=== PATIENT | male | born 1950 | race Native Hawaiian/Other Pacific Islander ===

== ENCOUNTER 2020-06-14 09:59 | Emergency (ER) | payer BC, OTHER ==
--- NOTE | 2020-06-14 10:36 | EDM.PDOC ---
ED HPI GENERAL MEDICAL PROBLEM - General Chief Complaint: Lower Extremity Injury/Pain Stated Complaint: RIGHT KNNE PAIN VT PATIENT Time Seen by Provider: 06/14/20 10:30 Source of Information: Reports: Patient, Family History Limitations: Reports: No Limitations - History of Present Illness INITIAL COMMENTS - FREE TEXT/NARRATIVE: 70-year-old male with right knee pain for the past 5 days. It started when he was getting out of a boat when his knee gave out and he had intense pain. It was difficult bearing weight for the next 1 to 2 days but within 2 to 3 days it felt like the pain was almost gone. He had no swelling. Yesterday however when he was extending the leg and pushing on a pedal of a bike, it "gave out" a second time and now is having pain and difficulty walking. Still has no swelling. [facility] come to [facility] to get an evaluation. Onset: Sudden Duration: Intermittent, Waxing/Waning Location: Reports: Lower Extremity, Right Quality: Reports: Sharp Improves with: Reports: Rest Worsens with: Reports: Other (Weightbearing is painful), Movement Associated Symptoms: Reports: No Other Symptoms Right Knee Pain Score (Numeric/FACES): 8 - Related Data Allergies Allergy/AdvReac Type Severity Reaction Status Date / Time nifedipine [From Procardia] Allergy Swelling Verified 06/14/20 10:17 Home Meds: Home Meds . [Unable to Verify Home Med List] 06/14/20 [History] Past Medical History HEENT History: Reports: Hard of Hearing, Impaired Vision Cardiovascular History: Reports: High Cholesterol, Hypertension Genitourinary History: Reports: Other (See Below) Other Genitourinary History: difficulty urinating Musculoskeletal History: Reports: Fracture Other Musculoskeletal History: fx r index finger Endocrine/Metabolic History: Reports: Diabetes, Type II, Obesity/BMI 30+ - Infectious Disease History Infectious Disease History: Reports: Chicken Pox, Measles, Mumps - Past Surgical History HEENT Surgical History: Reports: Tonsillectomy GI Surgical History: Reports: Colonoscopy Social & Family History - Tobacco Use Smoking Status *Q: Never Smoker Second Hand Smoke Exposure: No - Caffeine Use Caffeine Use: Reports: Coffee - Recreational Drug Use Recreational Drug Use: No Review of Systems - Review of Systems Review Of Systems: See Below Constitutional: Denies: Fever Respiratory: Reports: No Symptoms Cardiovascular: Reports: No Symptoms GI/Abdominal: Reports: No Symptoms Musculoskeletal: Reports: Other (No other significant joint complaints) Skin: Reports: No Symptoms. Denies: Rash ED EXAM, GENERAL - Physical Exam Exam: See Below Exam Limited By: No Limitations General Appearance: Alert, No Apparent Distress Respiratory/Chest: No Respiratory Distress Extremities: Other (Exam is otherwise limited to the lower extremities. The knees are symmetric without significant swelling or deformity of the right knee compared to the left. When the knee is relaxed, he has a small amount of tenderness to the lateral tibial plateau but no effusion, no tenderness the patella or patellar tendon, no medial joint line tenderness. Valgus and varus stress to the knee is nontender, but compression of the lateral joint does cause sharp pain.) Neurological: Alert, Oriented Psychiatric: Normal Affect, Normal Mood Skin Exam: Warm, Dry Course - Vital Signs Last Recorded V/S: Last Vital Signs Temp 97.1 F 06/14/20 10:22 Pulse 63 06/14/20 10:22 Resp 16 06/14/20 10:22 BP 150/59 H 06/14/20 10:22 Pulse Ox 95 06/14/20 10:22 - Orders/Labs/Meds Orders: Active Orders 24 hr Category Date Time Status DME for Discharge [COMM] Stat Oth 06/14/20 11:00 Ordered - Re-Assessments/Exams Free Text/Narrative Re-Assessment/Exam: 06/14/20 10:41 A right knee x-ray was obtained. 06/14/20 10:53 X-rays negative. A 4 inch [place] wrap was applied to the knee and the patient attempted to ambulate but was still having sharp pain in the lateral knee. He was then fitted for crutches and can refer recheck with orthopedics next week. Departure - Departure Time of Disposition: 11:00 Disposition: Home, Self-Care 01 Clinical Impression: Pain in lateral portion of right knee - Discharge Information Instructions: Crutch Use, Adult, [id number], Acute Knee Pain, Adult Referrals: Ivy Wang CAPACITY ANALYST [Primary Care Provider] - Forms: ED Department Discharge Care Plan Goals: Wrap knee for support and use crutches for the next several days and try to increase activity as tolerated. If not improving satisfactorily by early next week, recheck with orthopedics. Sepsis Event Note (ED) - Evaluation Sepsis Screening Result: No Definite Risk - Focused Exam Vital Signs: Vital Signs Temp Pulse Resp BP Pulse Ox 06/14/20 10:22 97.1 F 63 16 150/59 H 95 - My Orders Last 24 Hours: My Active Orders 06/14/20 11:00 DME for Discharge [COMM] Stat - Assessment/Plan Last 24 Hours: My Active Orders 06/14/20 11:00 DME for Discharge [COMM] Stat
--- NOTE | 2020-06-14 11:10 | CR ---
Knee 3V Rt CLINICAL HISTORY: Pain, giving out FINDINGS: No acute fracture or dislocation is noted. There are no osseous lesions. There is some patellar spurring. Impression: Patellar spurring No fracture or osseous lesion
== END 2020-06-14 11:00 | disposition home or self-care (01) ==
LOC: JP.ED 09:59
DX: M25.561 Pain in right knee (principal); E11.9 Type 2 diabetes mellitus without complications; E66.9 Obesity, unspecified; I10 Essential (primary) hypertension; Z88.8 Allergy status to other drugs, medicaments and biological substances; Z98.890 Other specified postprocedural states
CPT/HCPCS: 73562-26-RT; 73562-RT; 99282; 99283-25

== ENCOUNTER 2020-10-30 13:24 | Emergency (ER) | payer OTHER, MEDICARE ==
[2020-10-30] MEDS ORDERED: Meclizine 25 MG Tab PO ONE (14:44)
--- NOTE | 2020-10-30 14:46 | EDM.PDOC ---
ED HPI GENERAL MEDICAL PROBLEM - General Chief Complaint: General Stated Complaint: VERTIGO Time Seen by Provider: 10/30/20 14:10 Source of Information: Reports: Patient, Family History Limitations: Reports: No Limitations - History of Present Illness INITIAL COMMENTS - FREE TEXT/NARRATIVE: 70-year-old male who is been doing well, but while on the computer this morning at 7 AM developed sudden vertigo especially when looking left or right. No headache, but he did develop nausea and eventually vomiting. This has not happened to him in the past. After it did not resolve after several hours he came in to be checked. Patient is having trouble walking because of the vertigo, and had one emesis after getting into his exam room. No recent trauma. Onset: Sudden Duration: Hour(s): (5 hours) Worsens with: Reports: Other (Certain head movements cause increased vertigo) Associated Symptoms: Reports: Nausea/Vomiting - Related Data Allergies Allergy/AdvReac Type Severity Reaction Status Date / Time nifedipine [From Procardia] Allergy Swelling Verified 10/30/20 14:00 Home Meds: Home Meds Albuterol [Ventolin HFA] 1 puff INH Q4H PRN 10/30/20 [History] Alogliptin Benzoate [Alogliptin] 12.5 mg PO DAILY 10/30/20 [History] Ascorbic Acid [Vitamin C] 1 tab PO DAILY 10/30/20 [History] Aspirin 81 mg PO BEDTIME 10/30/20 [History] Atenolol/Chlorthalidone [Atenolol-Chlorthalidone 50-25] 1 tab PO DAILY 10/30/20 [History] Cholecalciferol (Vitamin D3) [Vitamin D3] 1 tab PO DAILY 10/30/20 [History] Finasteride 5 mg PO DAILY 10/30/20 [History] Fish Oil/[place]-3 Fatty Acids [Fish Oil 1,000 MG] 1 tab PO BID 10/30/20 [History] Glimepiride 2 mg PO BIDMEALS 10/30/20 [History] Insulin Glarg,Human.Rec.Analog [Lantus Solostar] 35 unit SUBCUT BEDTIME 10/30/20 [History] Multivitamin [Multi-Vitamin Daily] 1 each PO DAILY 10/30/20 [History] Pantoprazole 20 mg PO ACBREAKFAST 10/30/20 [History] Tamsulosin [Tamsulosin 24 Hr] 0.4 mg PO DAILY 10/30/20 [History] Zinc 1 tab PO DAILY 10/30/20 [History] amLODIPine Besylate [Amlodipine Besylate] 10 mg PO BEDTIME 10/30/20 [History] lisinopriL [Lisinopril] 40 mg PO DAILY 10/30/20 [History] metFORMIN [Glucophage] 1,000 mg PO BIDMEALS 10/30/20 [History] Past Medical History HEENT History: Reports: Hard of Hearing, Impaired Vision Cardiovascular History: Reports: High Cholesterol, Hypertension Genitourinary History: Reports: BPH, Other (See Below) Other Genitourinary History: difficulty urinating Musculoskeletal History: Reports: Fracture Other Musculoskeletal History: fx r index finger Endocrine/Metabolic History: Reports: Diabetes, Type II, Obesity/BMI 30+ - Infectious Disease History Infectious Disease History: Reports: Chicken Pox, Measles, Mumps - Past Surgical History HEENT Surgical History: Reports: Tonsillectomy GI Surgical History: Reports: Colonoscopy Social & Family History - Tobacco Use Tobacco Use Status *Q: Former Tobacco User Used Tobacco, but Quit: Yes Month/Year Tobacco Last Used: 1986 - Caffeine Use Caffeine Use: Reports: Coffee - Recreational Drug Use Recreational Drug Use: No ED ROS GENERAL - Review of Systems Review Of Systems: See Below Constitutional: Denies: Fever, Chills HEENT: Reports: Vertigo. Denies: Ear Pain, Eye Pain, Vision Change Respiratory: Denies: Shortness of Breath Cardiovascular: Denies: Chest Pain GI/Abdominal: Reports: Nausea, Vomiting Skin: Reports: No Symptoms Neurological: Reports: Dizziness, Weakness, Gait Disturbance (Difficulty walking due to the vertigo). Denies: Headache Psychiatric: Reports: No Symptoms ED EXAM, GENERAL - Physical Exam Exam: See Below Exam Limited By: No Limitations General Appearance: Alert, No Apparent Distress (Uncomfortable but not distressed) Eye Exam: Bilateral Eye: EOMI, Nystagmus (Definite nystagmus looking to the left, none to the right), PERRL Ears: Normal TMs Head: Atraumatic Neck: Supple, Non-Tender. No: Carotid Bruit Respiratory/Chest: No Respiratory Distress, Lungs Clear Cardiovascular: Regular Rate, Rhythm GI/Abdominal: Soft, Non-Tender Extremities: Normal Inspection Neurological: Alert, Oriented, No Motor/Sensory Deficits, Abnormal Gait (Uncomfortable with ambulation due to vertigo) Psychiatric: Normal Affect, Normal Mood Skin Exam: Warm, Dry Course - Vital Signs Last Recorded V/S: Last Vital Signs Temp 97.7 F 10/30/20 14:05 Pulse 58 L 10/30/20 14:05 Resp 16 10/30/20 14:05 BP 144/72 H 10/30/20 14:05 Pulse Ox 92 L 10/30/20 14:05 - Orders/Labs/Meds Meds: Medications Discontinued Medications Generic Name Dose Route Start Last Admin Trade Name Carlos PRN Reason Stop Dose Admin Meclizine HCl 25 mg 10/30/20 14:44 10/30/20 14:49 Antivert PO 10/30/20 14:45 25 mg ONETIME ONE Administration Meclizine HCl Confirm 10/30/20 14:50 Antivert Administered 10/30/20 14:51 Dose 25 mg .ROUTE .STK-MED ONE - Re-Assessments/Exams Free Text/Narrative Re-Assessment/Exam: 10/30/20 15:27 And Jameson maneuver was performed concentrating on the left side, and within 10 minutes his symptoms were markedly improved. He was still having some slight nystagmus however, so CT of the head was done after giving 25 mg of oral meclizine. 10/30/20 15:32 CT of the head was negative for acute findings, he was feeling much better so was discharged with extra doses of meclizine. Recheck in 2 to 3 days if not improving satisfactorily. Departure - Departure Time of Disposition: 15:49 Disposition: Home, Self-Care 01 Clinical Impression: Vestibular neuritis Qualifiers: Laterality: left Qualified Code(s): H81.22 - Vestibular neuronitis, left ear - Discharge Information Instructions: Vertigo, [id number] Referrals: Ivy Wang CORN COOKER [Primary Care Provider] - Forms: ED Department Discharge Care Plan Goals: Rest today, use meclizine as needed and increase activity and diet as tolerated. Consider rechecking in 2 to 3 days if not improving satisfactorily, or return anytime if worsening or concerns. Sepsis Event Note (ED) - Evaluation Sepsis Screening Result: No Definite Risk - Focused Exam Vital Signs: Vital Signs Temp Pulse Resp BP Pulse Ox 10/30/20 14:05 97.7 F 58 L 16 144/72 H 92 L 10/30/20 13:49 97.7 F 58 L 16 144/72 H 92 L
[2020-10-30] MEDS ORDERED: Meclizine 25 MG Tab ONE (14:50)
--- NOTE | 2020-10-30 15:50 | CT ---
Head wo Cont CLINICAL HISTORY: Vertigo COMPARISON: None TECHNIQUE: Transverse scans were obtained from the base of the skull through the vertex without IV contrast on a multislice, multidetector CT scanner. Auto dosage reduction and iterative reconstruction techniques employed. FINDINGS: There is an 8 mm well-circumscribed CSF density focus in the right basal ganglia thalamic region. There is no mass effect, hemorrhage, or extraaxial collection. The basal cisterns and sulci over the convexities are prominent. The ventricles are prominent. 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
== END 2020-10-30 15:49 | disposition home or self-care (01) ==
LOC: JP.ED 13:24
DX: H81.22 Vestibular neuronitis, left ear (principal); I10 Essential (primary) hypertension; N40.0 Benign prostatic hyperplasia without lower urinary tract symptoms; E11.9 Type 2 diabetes mellitus without complications; E66.9 Obesity, unspecified; Z68.36 Body mass index [BMI] 36.0-36.9, adult; Z87.891 Personal history of nicotine dependence; Z88.8 Allergy status to other drugs, medicaments and biological substances; Z79.899 Other long term (current) drug therapy; Z79.82 Long term (current) use of aspirin; Z79.4 Long term (current) use of insulin
CPT/HCPCS: 70450; 99283; A9270

== ENCOUNTER 2023-05-23 11:39 | Emergency (ER) | payer OTHER ==
[2023-05-23 12:14] LABS: BASOPHILS ABSOLUTE AUTO 0.03 K/uL (0.00-0.10); BASOPHILS PERCENT AUTO 0.4 % (0.1-1.3); EOSINOPHILS ABSOLUTE AUTO 0.09 K/uL (0.00-0.40); EOSINOPHILS PERCENT AUTO 1.1 % (0.0-5.4); HEMATOCRIT 39.9 % (38.4-49.7); HEMOGLOBIN 13.4 g/dL (12.9-16.9); IMMATURE GRAN PERCENT AUTO 0.2 % (0.0-0.7); LYMPHOCYTES ABSOLUTE AUTO 1.91 K/uL (0.8-3.3); MEAN CORPUSCULAR HEMOGLOBIN 30.2 pg (31.6-35.5); MEAN CORPUSCULAR HGB CONC 33.6 g/dL (31.6-35.5); MEAN CORPUSCULAR VOLUME 90.1 fL (81.4-99.0); MONOCYTES ABSOLUTE AUTO 0.92 K/uL (0.20-0.90); MONOCYTES PERCENT AUTO 11.1 % (3.3-12.6); NEUTROPHILS ABSOLUTE AUTO 5.34 K/uL (1.0-7.6); NEUTROPHILS PERCENT AUTO 64.2 % (40.0-78.1); PLATELET COUNT,PLT 220 K/uL (130-375); RED BLOOD CELL COUNT 4.43 M/uL (4.14-5.76); WHITE BLOOD CELL COUNT,WBC 8.3 K/uL (3.2-11.0)
[2023-05-23 12:25] LABS: IMMATURE GRAN ABSOLUTE AUTO 0.02 K/uL (0.00-0.23)
[2023-05-23 12:42] LABS: CALCIUM 9.2 mg/dL (8.5-10.1); CREATININE 1.3 mg/dL (0.8-1.3); EST CRCL DRUG DOSING (CG) 46.91 mL/min
[2023-05-23] MEDS: Aspirin 81 MG Tab.Chew PO ONE (13:49)
[2023-05-23] MEDS: Heparin Sodium/D5W 25,000 UNITS/500 ML BAG IV SCH (14:01)
[2023-05-23] MEDS: Heparin Sodium 5,000 Units/ML Vial IVPUSH ONE (14:02)
[2023-05-23] MEDS: Sodium Chloride 0.9% 10 ML Syringe FLUSH PRN (14:05)
== END 2023-05-23 17:04 ==
LOC: JP.ED 11:39
DX: I21.4 Non-ST elevation (NSTEMI) myocardial infarction (principal); R00.1 Bradycardia, unspecified; E78.00 Pure hypercholesterolemia, unspecified; E11.9 Type 2 diabetes mellitus without complications; I10 Essential (primary) hypertension; E66.9 Obesity, unspecified; Z68.36 Body mass index [BMI] 36.0-36.9, adult; Z87.891 Personal history of nicotine dependence; Z79.4 Long term (current) use of insulin; Z79.84 Long term (current) use of oral hypoglycemic drugs; Z88.8 Allergy status to other drugs, medicaments and biological substances; Z79.899 Other long term (current) drug therapy
CPT/HCPCS: 36415; 71046; 80048; 83880; 84484; 85025; 85730; 93005; 96365; 96366; 99285; A9270; J1644; J3490

== ENCOUNTER 2023-07-17 08:01 | Day surgery (SDC) | payer OTHER ==
[~2023-07-17 08:01] MED LIST: Midazolam 1 MG/ML 2 ML SDV ONE; Propofol 200 MG/20 ML SDV ONE; fentaNYL 50 MCG/ML SDV ONE
[2023-07-17] MEDS ORDERED: Sodium Chloride 0.9% 1,000 ML IV SCH (08:30)
== END 2023-07-17 11:34 | disposition home or self-care (01) ==
LOC: JP.SDS 08:01
PROVIDERS: ATTEND Surgery
DX: D12.5 Benign neoplasm of sigmoid colon (principal); E78.00 Pure hypercholesterolemia, unspecified; E11.9 Type 2 diabetes mellitus without complications; K21.9 Gastro-esophageal reflux disease without esophagitis; Z88.8 Allergy status to other drugs, medicaments and biological substances
CPT/HCPCS: 45380; 45385; 88305; J2250; J2704; J3010; J7030

== ENCOUNTER → 2024-02-25 | Day surgery (SDC) | payer MEDICARE, OTHER ==
[~2024-02-25] MED LIST changes: -Midazolam 1 MG/ML 2 ML SDV ONE; +fentaNYL 100 MCG/2 ML SDV ONE; -fentaNYL 50 MCG/ML SDV ONE
[2024-02-25] MEDS: Lactated Ringers 1,000 ML IV SCH (07:31)
== END ==
LOC: JP.SDS 06:21
PROVIDERS: ATTEND Student in an Organized Health Care Education/Training Program
DX: Z12.11 Encounter for screening for malignant neoplasm of colon (principal); K63.5 Polyp of colon; K62.1 Rectal polyp; I25.10 Atherosclerotic heart disease of native coronary artery without angina pectoris; E11.9 Type 2 diabetes mellitus without complications; I25.2 Old myocardial infarction; Z95.5 Presence of coronary angioplasty implant and graft; Z79.82 Long term (current) use of aspirin; Z79.899 Other long term (current) drug therapy
CPT/HCPCS: 45380; 88305; J2704; J3010; J7120

== ENCOUNTER 2025-07-20 06:16 | Day surgery (SDC) | payer MEDICARE, OTHER ==
[2025-07-20] MEDS: Lactated Ringers 1,000 ML IV SCH (07:18)
[2025-07-20] MEDS ORDERED: fentaNYL 100 MCG/2 ML SDV ONE (07:30)
[2025-07-20] MEDS ORDERED: Propofol 200 MG/20 ML SDV ONE (07:30)
== END 2025-07-20 09:20 | disposition home or self-care (01) ==
LOC: JP.SDS 06:16
PROVIDERS: ATTEND Surgery
DX: Z12.11 Encounter for screening for malignant neoplasm of colon (principal); D12.2 Benign neoplasm of ascending colon; I10 Essential (primary) hypertension; E11.9 Type 2 diabetes mellitus without complications; E78.00 Pure hypercholesterolemia, unspecified; Z79.4 Long term (current) use of insulin; Z87.891 Personal history of nicotine dependence; Z88.8 Allergy status to other drugs, medicaments and biological substances; Z86.0100 Personal history of colon polyps, unspecified; Z79.899 Other long term (current) drug therapy
CPT/HCPCS: 00811; 45380; 88305; J2704; J3010; J7120